=== PATIENT | male | born 1985 | race Caucasian/White ===

== ENCOUNTER 2016-11-10 07:52 | Emergency (ER) | payer OTHER ==
[2016-11-10 07:58] VITALS: BP 154/93; PULSE 80; RESP 18; TEMP 98.2; O2SAT 95
--- NOTE | 2016-11-10 08:09 | EDPHY ---
HPI/HX/ROS/PE/MDM Narrative: CHIEF COMPLAINT: Right finger laceration. HPI: This is a 31-year-old male with no significant past medical history. Just prior to arrival, while at work, a large piece of equipment accidentally got loose and slid onto his right hand, causing blunt force injury to his right hand , as well as laceration to middle right fingertip. He denies numbness or weakness. His tetanus is up to date. No other injury. REVIEW OF SYSTEMS: Aside from elements discussed in the HPI, a comprehensive 10-point review of systems was reviewed and is negative. PMH: Hypertension. SOCIAL HISTORY: Works for [employer]. . PHYSICAL EXAM: General:Patient is alert, in no acute distress. Extremities: Right hand: A fingertip avulsion/laceration is present to the distal middle finger, involving distal nail. Mild active bleeding. No deformity. Cap refill is normal. Abrasion present to distal ring finger. Neuro: Oriented x3. Normal motor function. Normal sensory function. ED Course: After my examination a right 3rd finger x-ray was ordered. I performed a digital block on the right 3rd and 4th fingers. Study: Right 3rd finger X-ray Indication: Trauma, pain Results: I viewed the images myself on the PACS system. My interpretation of the images is: no bony involvement. The radiologist interpretation is pending at the time of this dictation. Procedure: Laceration repair. Verbal consent was obtained from the patient. The fingertip avulsion on the right 3rd finger was anesthetized using a digital block. The wound was cleaned with standard ED protocol, draped and explored to its base with a gloved finger. There were no deep structures involved. No tendon injury was identified. The wound was repaired in single layer technique with 4 5-0 Prolene. The wound repair was complex. The procedure was performed by myself, Dr. Loomis. MDM: This patient presents with fingertip partial avulsion. Distal segment is attached at 1 portion of the wound and I think this may be viable. I discussed with the patient the option of completing the avulsion verses suture repair and he would like to proceed with suture repair. We discussed strict return precautions and the patient will be referred to Hand surgery. General Time Seen by Provider: 11/10/16 08:05 Initial Vital Signs: Initial Vital Signs Temperature (C) 36.8 C 11/10/16 07:54 Heart Rate 80 11/10/16 07:54 Respiratory Rate 18 11/10/16 07:54 Blood Pressure 154/93 H 11/10/16 07:54 O2 Sat (%) 95 11/10/16 07:54 O2 Delivery Mode Room Air Allergies/Adverse Reactions: No Known Allergies Allergy (Unverified 11/10/16 07:57) Home Medications: Medication Instructions Recorded LISINOPRIL/HYDROCHLOROTHIAZIDE 11/10/16 [PRINZIDE 20-25 MG TABLET] Departure - Departure Disposition: Home, Routine, Self-Care Clinical Impression: Fingertip avulsion Condition: Good Instructions: Care For Your Stitches (ED), Finger Laceration (ED) Additional Instructions: Keep wound clean with warm, soapy water and avoid prolonged immersion of stitches in water. Return in 10-14 days for suture removal. Return to the emergency department for any serious worsening of condition. Referrals: [facility] [Other] - As per Instructions Report Scribed for: Daren Loomis Report Scribed by: Kelvin Candelario Date of Report: 11/10/16 Time of Report: 08:08 Physician Review and Approval Statement: Portions of this note were transcribed by a medical microbiologist. I personally performed a history, physical exam, medical decision making, and confirmed accuracy of information the transcribed note.
== END 2016-11-10 09:22 | disposition home or self-care (01) ==
PROC: 0HQFXZZ Repair Right Hand Skin, External Approach (ICD-10-PCS; principal; 2016-11-10)
DX: S61.202A Unspecified open wound of right middle finger without damage to nail, initial encounter (principal); I10 Essential (primary) hypertension; W23.1XXA Caught, crushed, jammed, or pinched between stationary objects, initial encounter; Y92.69 Other specified industrial and construction area as the place of occurrence of the external cause; Y99.0 Civilian activity done for income or pay; Y93.89 Activity, other specified

== ENCOUNTER 2016-11-12 12:04 | Emergency (ER) | payer OTHER ==
[2016-11-12 12:11] VITALS: BP 140/82; PULSE 76; RESP 16; TEMP 98.1; O2SAT 98
--- NOTE | 2016-11-12 12:26 | EDPHY ---
H & P Stated Complaint: increased pain/swelling R third finger lac repaired here 11/10 HPI/ROS: Chief complaint: Pain and swelling to right middle finger after injury History of present illness: This is a 31-year-old male who presents to the emergency department for pain and swelling to his right middle finger. Patient injured it 2 days ago, cutting the tip of it nearly off. He was seen in this emergency department and the wound was repaired with sutures. Since then he has had persistent pain. However, last night pain worsened. He has noted some redness around the tip of the finger. He denies other associated signs or symptoms: No swelling of the finger, no red streaking up the finger, he can still flex and extend it well. He states there has been no change in sensation in the finger. No abnormal coolness. No fevers. - Personal History Current Tetanus/Diphtheria Vaccine: Unsure Current Tetanus Diphtheria and Acellular Pertussis (TDAP): Unsure - Medical/Surgical History Hx Asthma: No Hx Chronic Respiratory Disease: No Hx Diabetes: No Hx Cardiac Disease: No Hx Renal Disease: No Hx Cirrhosis: No Hx Alcoholism: No Hx HIV/AIDS: No Hx Splenectomy or Spleen Trauma: No Other PMH: HTN - Social History Smoking Status: Light smoker - Physical Exam Exam: General: Alert, nontoxic Skin: An avulsion injury appears to have been sutured back into place on the tip of the right middle finger. There is no pustular discharge from the wound. However there is some surrounding erythema. There is no associated edema. No erythema or edema to the rest of the finger. No red streaking up the finger arm. Musculoskeletal: No erythema or edema of the rest of the finger. He can flex and extend it well in the DIP, PIP and MCP joint without discomfort. Vascular: Capillary refill is brisk in the right middle finger. Radial pulses 2+. Neurologic: Sensation intact in the right middle finger using light touch sensation Constitutional: Initial Vital Signs Temperature (C) 36.7 C 11/12/16 12:08 Heart Rate 76 11/12/16 12:08 Respiratory Rate 16 11/12/16 12:08 Blood Pressure 140/82 H 11/12/16 12:08 O2 Sat (%) 98 11/12/16 12:08 O2 Delivery Mode Room Air Allergies/Adverse Reactions: No Known Allergies Allergy (Verified 11/12/16 12:05) Home Medications: Medication Instructions Recorded LISINOPRIL/HYDROCHLOROTHIAZIDE 11/10/16 [PRINZIDE 20-25 MG TABLET] Cephalexin [Keflex] 500 mg PO QID 7 Days 11/12/16 Hydrocodone/APAP 5/325 [Hoolehua 1 tab PO Q4 #6 tab 11/12/16 5/325 (*)] Medical Decision Making ED Course/Re-evaluation: Previous records reviewed Patient seen under the supervision of my primary supervising physician Dr. Elayne Wright. Patient presents to the emergency department for increased pain and redness around a wound to his right middle finger that was repaired in this emergency department 2 days ago. He does appear to remain neurovascularly intact. Physical exam is concerning for developing wound infection. However I do not appreciate evidence of complications such as abscess formation or infectious tenosynovitis. Patient will be started on Keflex. Home care is discussed including pain management. He is asked to follow up with worker's compensation or hand doctor for further evaluation and care this week. Strict return precautions are given. Patient voiced understanding and agreement with plan. Differential Diagnosis: Included but not limited to wound infection, cellulitis, abscess, unlikely infectious tenosynovitis or lymphangitis Departure - Departure Disposition: Home, Routine, Self-Care Clinical Impression: Wound infection Condition: Good Instructions: Wound Infection (ED) Additional Instructions: Follow-up with worker's compensation or hand doctor next week for recheck Keep wound clean with soap and warm water multiple times daily Take antibiotics as prescribed until finished even feeling better In regards to pain control see the following: Use ibuprofen 600 mg 3 times a day for the next 2-3 days for pain In addition You have been prescribed Hoolehua for pain. Hoolehua contains Tylenol, do not take extra Tylenol/acetaminophen/Apap with it. It is sedating. If symptoms worsen or new symptoms develop return to the emergency department for recheck Referrals: Brii Coon MD [Medical Doctor] - As per Instructions Prescriptions: Cephalexin [Keflex] 500 mg PO QID 7 Days Hydrocodone/APAP 5/325 [Hoolehua 5/325 (*)] 1 tab PO Q4 #6 tab
== END 2016-11-12 12:30 | disposition home or self-care (01) ==
DX: T81.4XXA Infection following a procedure, initial encounter (principal); I10 Essential (primary) hypertension; F17.200 Nicotine dependence, unspecified, uncomplicated; Y82.8 Other medical devices associated with adverse incidents